=== PATIENT | female | born 1960 | race Caucasian/White ===

== ENCOUNTER 2018-04-14 20:49 | Emergency (ER) | payer SELFPAY ==
[~2018-04-14] VITALS: Ht 165.1 cm; Wt 54.3 kg
[2018-04-14 20:57] VITALS: BP 154/110
== END 2018-04-14 21:55 | disposition left against medical advice (07) ==
LOC: EME 20:49
DX: S61.218A Laceration without foreign body of other finger without damage to nail, initial encounter (principal); Z53.21 Procedure and treatment not carried out due to patient leaving prior to being seen by health care provider